=== PATIENT | female | born 1950 | race Caucasian/White ===

== ENCOUNTER 2024-09-20 08:58 | Observation (INO) ==
--- NOTE | 2024-09-17 09:39 | Anesthesiology Consultation ---
Date of Service September 17, 2024 Assessment & Plan (1) Encounter for pre-operative examination: Chart Review Chart Review: Acceptable Risk for Surgery (pending DOS CBC with diff ) and Patient NOT seen in Pre Admission Testing - Check CBC with diff stat DOS (not done within 30 days preoperatively) Left limb restriction - Discussed case with Dr. Escobedo- patient can proceed as scheduled -Infectious Disease screening: Per PAT nursing assessment on 09/10/24. No known infectious disease contacts in past 10 days or current infectious disease symptoms. No recent travel outside the country. Seen by PCP 08/16/24= Presents for SOB, swelling in LEs (L>R). Present x several days. Feeling better than yesterday. VSS. Labs, ECHO, CXR, EKG, UA ordered. Cysto, Retro Pyelo, ureteroscopy, instillation of chemo 07/26/24= Done under [facility] with LMA #4. Igel Last seen by cardio 03/06/24= "...atrial fibrillation...since last clinic visit patient has been diagnosed with renal carcinoma...currently undergoing treatments...no indication for cardiac testing or procedures at this time..." History Surgery Operation Date: 09/20/24 07:30 Proposed Procedures p Cystoscopy, Possible Ureteroscopy, Instillation of Chemotherapy - Right - Sven Chauhan, Height/Weight Height: 5 ft 7 in Weight: 113.852 kg Allergies Allergy/AdvReac Type Severity Reaction Status Date / Time adhesive tape Allergy Intermediate skin Verified 09/10/24 11:44 irritation letrozole Allergy Intermediate listed in Verified 09/10/24 11:44 cardiology records, severe tiredness Iodinated Contrast Media Allergy Unknown listed in Verified 09/10/24 11:44 cardiology records sulfamethoxazole AdvReac Intermediate Gastrointestinal Verified 09/10/24 11:44 [From Bactrim] Upset trimethoprim [From Bactrim] AdvReac Intermediate Gastrointestinal Verified 09/10/24 11:44 Upset cardiolite Allergy Severe severe Uncoded 09/10/24 11:44 facial swelling and redness Medications Home Medications Medication Instructions Recorded Confirmed Last Taken amlodipine 5 mg tablet 5 mg PO QAM 09/08/23 09/10/24 07/26/24 06:30 apixaban 5 mg tablet (Eliquis) 5 mg PO BID 09/08/23 09/10/24 07/23/24 21:00 calcium citrate 400 mg PO QAM 09/08/23 09/10/24 07/25/24 08:00 diltiazem HCl 240 mg capsule,24 240 mg PO QAM 09/08/23 09/10/24 07/26/24 06:30 hr,extended release mupirocin 2 % topical ointment 1 applic topical Q7D 09/08/23 09/10/24 05/21/24 (Centany) pravastatin 40 mg tablet 40 mg PO HS 09/08/23 09/10/24 05/23/24 carbamazepine 100 mg 100 mg PO BID nerves 12/08/23 09/10/24 07/26/24 06:30 capsule,extended release [id number] (Carbatrol) cholecalciferol (vitamin D3) 125 125 mcg PO QAM 04/13/24 09/10/24 07/25/24 08:00 mcg (5,000 unit) tablet (Vitamin D3) furosemide 20 mg tablet (Lasix) 20 mg PO QAM 08/31/24 09/10/24 Unknown magnesium oxide 250 mg PO DAILY 08/31/24 09/10/24 Unknown potassium chloride 8 mEq 8 meq PO DAILY 08/31/24 09/10/24 Unknown tablet,extended release Past Medical History Medical History (Updated 09/17/24 @ 10:42 by Katie Elkins PA-C) Atrial fibrillation Paroxysmal Taking Eliquis Follows with Dr. Hi/Clare Difficulty in walking - Increased LE swelling and difficulty ambulating post op after 07/26/24 surgery; had cardiac testing through PCP to rule out cardiac issues- diagnosed with hip OA and bursitis- still has hip pain ; denies cardiac issues - Patient discussed with surgeon- urology did not feel issues were related to chemo/procedure High cholesterol History of cervical fracture 05/2019, fall down stairs resulting in isolated C1 vertebral body fracture- treated conservatively with collar by neurosurgery, f/u imaging 08/2019 note resolution in fracture History of colon cancer Dx 2021, s/p surgery History of trigeminal neuralgia Hx MRSA infection Dx ~2018 (under armpit/nares) Hx of breast cancer Dx 2019, s/p surgery/xrt Hypertension 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 Ovarian cancer (2003) Dx 2004, s/p surgery/chemo 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, dx 08/2023; s/p laser ablation with biopsies as well as instillation of chemotherapy Past Family History Family History Mother Heart disease Hypertension Other No family history of adverse response to anesthesia Past Surgical History Surgical History History of esophagogastroduodenoscopy (EGD) History of gynecologic surgery 08/2023, lesion removed from vulva (benign) History of lumpectomy of left breast 03/2020 History of postoperative nausea and vomiting one single episode of PONV, no problems after that History of surgery ~2021 (r/t for trigeminal neuraglia) Hx of bilateral cataract extraction Hx of colonoscopy Hx of cystoscopy w/ instillation of chemo, right kidney (multiple)>most recent 07/2024 Hx of lymph node excision pelvic region from ovarian CA Hx of right hemicolectomy Hx of total hysterectomy with removal of both tubes and ovaries S/P cystoscopy (05/03/24) with instillation of chemotherapy -- multiple Social History Smoking Status: Never smoker Do You Dip or Chew Tobacco: No Hx Alcohol Use: Yes alcohol intake frequency: holidays/special occasions only Hx Substance Use: No substance use type: does not use Testing Laboratory Results 08/31/24= URINE CULTURE: Enterococcus faecalis >100,00 CFU/ml 08/29/24= SODIUM: 141 POTASSIUM: 3.4 CHLORIDE: 108 CO2: 26.0 BUN: 13.0 CREATININE: 0.97 GLUCOSE: 116 08/16/24 (>30 days per urology guidelines)= WBC: 3.70 H/H: 10.0/31.4 PLATELETS: 158 Electrocardiogram Date: 08/16/24 SR at 86bpm Poor R wave progression Chest X-Ray Date: 08/16/24 Pneumonitis changes noted in bilateral mid and bilateral lower lung zone with mild linear atelectasis band noted in right mid. As compared to previous x-ray dated 09/24, present x-ray shows pneumonitis lauren ges noted. (Patient with mild cough since end of Jul 2024 (had viral infection)- stable and mild in severity per patient- will leave to anesthesiologist's discretion DOS if repeat CXR needed) Echocardiogram Date: 08/31/24 EF: 55-60% LV Function: normal RWMA: + none Other Findings: no LVH RV normal in size and systolic function Left atrium mildly dilated Aortic valve- not well seen- at most mild , MG- 11, DVI= 0.47. FLORECITA 1.27-1.49 cm2, AV max velocity 2.32m/s Likely normal RVSP and right atrial pressure
--- NOTE | 2024-09-20 09:35 | History & Physical Bridge Note ---
Date of Service September 20, 2024 History & Physical Bridge Note I have examined the patient, reviewed the History & Physical and in the interval since the performance of the History & Physical I have noted the following changes of clinical significance: no changes noted
[2024-09-20] MEDS ORDERED: ONDANSETRON INJ 2 MG/ML 2 ML VIAL IV PRN ×2 (09:36→10:22)
[2024-09-20] MEDS ORDERED: MoRPHine SULFATE 2 MG/ML CARP IV PRN (09:36)
[2024-09-20] MEDS ORDERED: oxyCODONE/ACETAMINOPHEN 5mg/325mg TAB PO PRN (09:36)
[2024-09-20 09:42] LABS: Basophils # (auto) 0.02 K/uL (0.00-0.20); Basophils % (auto) 0.4 %; Eosinophils % (auto) 1.8 %; Hematocrit (blood only) 35.9 % (37.0-47.0); Hemoglobin 11.8 g/dl (12.0-16.0); Immature Granulocytes # (auto) 0.02 K/uL (0.01-0.20); Immature Granulocytes % (auto) 0.4 %; Lymphocytes # (auto) 0.84 K/uL (1.20-3.40); Lymphocytes % (auto) 15.4 %; Mean Corpuscular Hemoglobin 33.2 pg (25.0-34.0); Mean Corpuscular Hgb Conc 32.9 g/dL (32.0-36.0); Mean Corpuscular Volume 101.1 fL (80.0-100.0); Mean Platelet Volume 9.1 fL (9.4-12.4); Monocytes # (auto) 0.78 K/uL (0.11-0.59); Monocytes % (auto) 14.3 %; Neutrophils # (auto) 3.71 K/uL (1.40-6.50); Neutrophils % (auto) 67.7 %; Platelet Count 246 K/uL (130-400); RDW Coefficient of Variation 15.5 % (11.5-14.5); RDW Standard Deviation 58.2 fL (36.4-46.3); Red Blood Count 3.55 M/uL (4.20-5.40); White Blood Count 5.47 K/ul (4.8-10.8)
[2024-09-20] MEDS: LR 15ML/HR IV SCH (09:54)
[2024-09-20] MEDS ORDERED: LIDOCAINE 2% 2 ML VIAL/AMP(20MG/ML) INFIL ONE (10:05)
[2024-09-20] MEDS ORDERED: fentaNYL citrate PF 100 MCG/2 ML VIAL ONE (10:05)
[2024-09-20] MEDS ORDERED: MIDAZOLAM HCL 1 MG/ML 2ML VIAL ONE (10:05)
[2024-09-20] MEDS ORDERED: PROPOFOL IV EMULSION 10 MG/ML 20 ML VIAL IV ONE ×2 (10:05→11:32)
[2024-09-20] MEDS ORDERED: ONDANSETRON INJ 2 MG/ML 2 ML VIAL ONE (10:05)
[2024-09-20] MEDS ORDERED: ATROPINE SULFATE 0.1 MG/ML 10ML SYR IV PRN (10:22)
[2024-09-20] MEDS ORDERED: ePHEDrine sulfate 50 MG/ML AMP IV PRN (10:22)
[2024-09-20] MEDS ORDERED: fentaNYL citrate PF 100 MCG/2 ML VIAL IV PRN (10:22)
[2024-09-20] MEDS ORDERED: PROMETHAZINE HCL 6.25 MG in SODIUM CHLORIDE 0.9% 50 ML IV PRN (10:22)
[2024-09-20] MEDS ORDERED: HYDROmorphone INJ 2 MG/ML SYR/VIAL IV PRN (10:22)
[2024-09-20] MEDS: ceFAZolin 2000MG 2,000 MG/15 ML SYR IV SCH (11:09)
[2024-09-20] MEDS: DIATRIZOATE MEGLUMINE 30% 100ML VIAL INSTIL ONE (11:38)
--- NOTE | 2024-09-20 11:45 | Operative Report ---
PG Post Operative Report Pre & Post Diagnosis Upper Tract UCC Same, Bladder tumors Operation Date: 09/20/24 10:55 <No data on this case meets the specified criteria> I identified the patient and participated in the time-out.: Yes Procedure Cystoscopy with biopsy and fulguration of lesion/tumor Right Retrograde pyelogram. Right Chemotherapy instillation Operation Date: 09/20/24 10:55 <No data on this case meets the specified criteria> Surgeon Sven Chauhan, II, DO [employer] Coordinator None Estimated Blood Loss 1 Findings Consistent with Post-Op Diagnosis Fluoroscopy confirmed position of the ureteral catheter in the right UPJ/ Renal pelvis. Jelmyto chemotherapy was instilled without issue. 10 cc instilled Papillary lesion of the posterior wall approx 1.2 cm in size. Papillary lesion of the left trigone approx 5 mm in size. Approx 1-2 mm lesion of the dome x 3 Specimens None Drains None Anesthesia Type MAC Complications none Disposition Disposition: Recovery Room Indications Patient with Right Low Grade Upper Tract UCC in the Renal pelvis. Risks and benefits discussed at length. Description of Procedure Patient was consented and brought back to the operating room. Patient was placed under anesthesia in the supine position and moved to the dorsal lithotomy position. Patient was prepped and draped in the regular sterile fashion. A time out was completed. A 30degree Cystoscope was placed into the bladder and the entire bladder was examined. The UO's were identified. The right UO was cannulized with a catheter and advanced to the renal pelvis. Fluoroscopy was used to confirm positioning in the right superior position likely within the UPJ. A steady drip of urine was confirmed from the catheter to determine positioning within the renal pelvis. A retrograde pyelogram was completed with 12 cc of contrast confirming position in the renal pelvis. Fluoroscopy was used to confirm location in the vicinity of the Renal Pelvis/UPJ . At this point, the Jelmyto solution/agent was prepared and measured. The injecting device was attached and the syringe was attached to the ureteral catheter. The Jelmyto was then instilled into the renal pelvis. No issues or problems. Fluoroscopy was used to monitor the process. The catheter was held in position for two minutes to allow the solution to set up. The catheter was then removed and disposed of utilizing proper technique and protocol for handling of chemotherapeutic agents. The bladder was fully inspected. There was papillary lesions discovered with a larger papillary lesion on the posterior wall. This was able to be biopsied using a cold cup biopsy forcep. There was an additional small lesion near the trigone/bladder neck on the left. 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 The larger lesion after biopsy was fulgurated with the surrounding tissue ablated. The smaller papillary lesion in the trigone region was ablated. It was found to not be in close proximity of the ureter. The UOs on both sides were able to be identified and no issues. The 3 smaller lesions at the dome were then fulgurated as well. No major areas of bleeding or other issues. The bladder was emptied. The scope was removed. The patient was cleaned, aroused from anesthesia, and transferred to the pacu in stable condition having tolerated the procedure well with no complications. I was present and participated in all aspects of the procedure. The patient will be monitored in the PACU until transferred. Patient will be monitored in PACU and follow the post procedure chemotherapy protocol. Will plan to observe overnight. Followup/set up in approx 3-4 weeks for cystoscopy and next maintenance dose of Jelmyto at that time. I attest to the content of the Intraoperative Record and any orders documented therein. Any exceptions are noted below.
--- NOTE | 2024-09-20 12:18 | Fluoroscopy Report ---
FL retrograde includes kub CLINICAL HISTORY: INSTALLATION OF CHEMO RT COMPARISON STUDY: None FLUOROSCOPY TIME: 11 seconds FLUOROSCOPY IMAGES: 2 EXPOSURE DOSE: 5 mGy FINDINGS: Fluoroscopy was provided for chemotherapy administration. IMPRESSION: Intraoperative fluoroscopy. ACT 112: Negative or not required by law. Electronically signed by: Rohit Pope M.D. 09/20/2024 12:17 PM
[2024-09-20] MEDS: CIPROFLOXACIN / D5W 400 MG/200 ML BAG IV SCH (12:19)
--- NOTE | 2024-09-20 13:30 | Anesthesiology Progress Note ---
Date of Service September 20, 2024 Anesthesia Post Procedure Vital Signs Vital Signs: Temp Pulse Pulse Resp BP Pulse Ox O2 Del Method 09/20/24 13:15 78 17 152/91 H 93 Room Air 09/20/24 13:00 83 20 139/92 94 Room Air 09/20/24 12:45 77 15 142/97 H 90 Room Air 09/20/24 12:30 76 16 114/84 93 Room Air 09/20/24 12:15 36.4 C L 75 15 141/78 H 96 Room Air 09/20/24 12:05 75 17 125/71 93 Room Air 09/20/24 11:55 75 16 124/62 96 Room Air 09/20/24 11:49 36 C L 78 16 123/64 93 Room Air 09/20/24 09:36 36.8 C 88 20 140/76 93 Room Air Transfer of Care Handoff Completed per policy Notes Mental Status: alert / awake / arousable and participated in evaluation Patient Amnestic to Procedure: Yes Nausea / Vomiting: adequately controlled Pain: adequately controlled Airway Patency, RR, SpO2: stable & adequate BP & HR: stable & adequate Hydration State: stable & adequate Anesthetic Complications: no major complications apparent
[2024-09-20] MEDS: CIPROFLOXACIN 400MG / 200ML D5W IV ONE (14:41)
[2024-09-20] MEDS: carBAMazepine XR 100 MG TABCR PO SCH (20:49)
[2024-09-20] MEDS: PRAVASTATIN SOD 40 MG TAB PO SCH (20:50)
[2024-09-21] MEDS: PHENAZOPYRIDINE HCL 200 MG TAB PO PRN (01:08)
[2024-09-21] MEDS: CHOLECALCIFEROL 125 MCG (5,000 UNITS) TAB PO SCH (09:24)
[2024-09-21] MEDS: MAGNESIUM OXIDE 400 MG TAB PO SCH (09:24)
[2024-09-21] MEDS: amLODIPine BESYLATE 5 MG TAB PO SCH (09:24)
[2024-09-21] MEDS: FUROSEMIDE 20 MG TAB PO SCH (09:24)
[2024-09-21] MEDS: dilTIAZem HCL 240 MG CAPCR PO SCH (09:24)
[2024-09-21] MEDS: POTASSIUM CHLORIDE 10 MEQ TABCR PO SCH (09:24)
[2024-09-21] MEDS: CALCIUM CARBONATE 1250MG TAB PO SCH (09:25)
--- NOTE | 2024-09-21 09:59 | Urology Progress Note ---
Date of Service September 21, 2024 Assessment & Plan (1) Urothelial carcinoma of kidney: Plan: - Patient POD #1 s/p Cystoscopy with biopsy and fulguration of lesion/tumor; Right Retrograde pyelogram. Right Chemotherapy instillation - Admitted after procedure for observation - Subjectively feeling well this morning - Afebrile, hemodynamically stable - Voiding spontaneously - Denies pain, tolerating diet - Plan for discharge today - Expected clinical course reviewed, all questions answered - Will arrange outpatient follow-up with our service Admission and Anticipated Discharge Date Admission Date: September 20, 2024 Subjective Patient seen and examined at bedside this morning. She is awake and resting in bed. No acute issues overnight. Subjectively feeling well this morning. Reports dysuria yesterday evening, relieved with Pyridium. No fever or chills. Denies pain at present. Review of Systems Constitutional: as per Subjective / HPI Genitourinary: as per Subjective / HPI Physical Exam Constitutional: well developed and well nourished; no acute distress Respiratory: normal respiratory effort; no respiratory distress and no labored breathing Gastrointestinal (Abdomen): Inspection/Auscultation: abdomen normal to inspection Musculoskeletal: Head/Neck/Chest: normocephalic Neurologic: moves all extremities and awake Psychiatric: Orientation: alert and oriented x 3 Results & Data Vital Signs (Past 12 Hours) Vital Signs Temp Pulse Pulse Resp BP Pulse Ox O2 Del Method 09/21/24 07:17 36.9 C 89 18 130/76 91 Room Air 09/21/24 07:00 92 H 09/21/24 03:50 94 Room Air 09/21/24 03:02 36.7 C 91 H 18 124/74 92 Room Air 09/20/24 23:49 36.8 C 88 18 138/80 93 Room Air 09/20/24 22:02 94 H PG Care Time/CCT Total # of Minutes Spent Total Time Spent with Patient: Total time spent is greater than 50% in coordination of care (as documented) at patient's floor/unit and/or counseling patient: Coding Level of Care Code None Diagnoses 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
--- NOTE | 2024-09-21 12:28 | Discharge Summary ---
Date of Service September 21, 2024 Admission HPI Per Admitting Provider Patient with urothelial carcinoma of kidney here for cystoscopy and Jelmyto instillation. Principal Diagnosis Urothelial carcinoma of kidney Discharge Exam Constitutional well developed and well nourished; no acute distress Respiratory normal respiratory effort; no respiratory distress and no labored breathing Gastrointestinal (Abdomen) Inspection/Auscultation: abdomen normal to inspection Musculoskeletal Head/Neck/Chest: normocephalic Neurologic moves all extremities and awake Psychiatric Orientation: alert and oriented x 3 Discharge Data Allergies Allergy/AdvReac Type Severity Reaction Status Date / Time sestamibi Allergy Severe CARDIOLITE=severe Verified 09/20/24 09:26 facial swelling and redness adhesive tape Allergy Intermediate skin Verified 09/20/24 09:26 irritation letrozole Allergy Intermediate listed in Verified 09/20/24 09:26 cardiology records, severe tiredness Iodinated Contrast Media Allergy Unknown listed in Verified 09/20/24 09:26 cardiology records sulfamethoxazole AdvReac Intermediate Gastrointestinal Verified 09/20/24 09:26 [From Bactrim] Upset trimethoprim [From Bactrim] AdvReac Intermediate Gastrointestinal Verified 09/20/24 09:26 Upset Procedures Performed Operation Date: 09/20/24 10:55 Actual Procedures p Cystoscopy, Instillation of mitomycin, Right retrograde pyelogram, Right biopsy fulguration(Right) - Sven Chauhan, DO Ordered Studies 09/20/24 10:55 FL retrograde includes kub Routine Hospital Course (1) Urothelial carcinoma of kidney: - Patient POD #1 s/p Cystoscopy with biopsy and fulguration of lesion/tumor; Right Retrograde pyelogram. Right Chemotherapy instillation - Admitted after procedure for observation - Subjectively feeling well this morning - Afebrile, hemodynamically stable - Voiding spontaneously - Denies pain, tolerating diet - Plan for discharge today - Expected clinical course reviewed, all questions answered - Will arrange outpatient follow-up with our service Total Time Total Time Spent Total Time Spent (In Minutes): 15 Discharge Plan Discharge Items Patient Disposition: Home - Self-Care Reason For Visit: Malignant Neoplasm of Right Kidney, Except Renal P Discharge Diagnosis: Malignant neoplasm of right kidney Activity: Per Instructions section Lifting: No more than 25 pounds Bathing Comment: Okay to shower to discharge Sexual Activity: When tolerated Exercise/Sports: As tolerated Non-emergency contact: Surgeon and Urologist Call non-emergency contact if: your pain is not controlled and your temperature is above 101 Follow-up/Referrals: Sven Chauhan DO [Physician] - 10/03/24 1:00 pm Becky Zhang CRNP [Primary Care Provider] - Diet: Regular Addtl Attending Provider Instructions: Please take all medications as prescribed and keep all follow-ups as scheduled. Please call our office at [phone] with any questions, concerns or need to reschedule appointments for any reason. We are happy to assist you. You can resume Eliquis tonight. Take antibiotic as directed. You can take Tamsulosin once daily at bedtime. You can take Pyridium 1 tablet every 8 hours up to 3 times per day for 2-3 days as needed for urinary discomfort. After procedure: Some discomfort is normal. Medication to help minimize discomfort or bladder spasms, or to prevent infection may be prescribed. Take this as directed. Drink plenty of fluids to help flush out your urinary tract. If you go home with a catheter, wash with soapy water and a fresh washcloth twice daily. We recommend mild bar soap such as Dial or Dove. When to call [facility] at [phone]: Your urine contains heavy blood clots You are constantly leaking urine Fever of 101F or higher, chills, nausea, or vomiting Your pain is not relieved with medication Pending Studies at Discharge: Yes Studies:: pathology Stand-Alone Forms: My [facility] [employer], Smoking Cessation Medications and DC Order Prescriptions: New tamsulosin [Flomax] 0.4 mg capsule 0.4 mg PO HS Qty: 30 0RF cephalexin 500 mg capsule 500 mg PO BID 3 Days Qty: 6 0RF Continued magnesium oxide 250 mg magnesium tablet 250 mg PO DAILY furosemide [Lasix] 20 mg tablet 20 mg PO QAM Patient Comments: will finish course of tx prior to sx on 09/20/24 potassium chloride 8 mEq tablet extended release 8 meq PO DAILY pravastatin 40 mg Tablet 40 mg PO HS diltiazem HCl 240 mg Capsule,Extended Release 24 Hr 240 mg PO QAM amlodipine 5 mg Tablet 5 mg PO QAM mupirocin [Centany] 2 % Ointment 1 applic TOPICAL Q7D Rx Instructions: put in nares Q7D calcium citrate 200 mg (950 mg) Tablet 400 mg PO QAM Eliquis 5 mg Tablet 5 mg PO BID cholecalciferol (vitamin D3) [Vitamin D3] 125 mcg (5,000 unit) Tablet 125 mcg PO QAM carbamazepine [Carbatrol] 100 mg capsule, ER multiphase 12 hr 100 mg PO BID Discharge Orders: Discharge Order (Routine); Ordered 09/21/24 Ordered By: Raegan Villanueva Admission Data Admit Date/Time: 09/20/24 09:36 Attending Provider: Sven Chauhan Admit Provider: Sven Chauhan Primary Care Provider: Becky Zhang Other Interventions: Discharge Summary Assessment (RN) Last Done: 09/21/24 11:27 Coding Level of Care Code 56112 IN/OBS DISCH 30 MIN/LESS Diagnoses 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
[2024-09-25] MEDS ORDERED: MUPIROCIN 2% OINT 22 GM TUBE TOP SCH (09:00)
== END 2024-09-21 11:40 | disposition home or self-care (01) ==
LOC: PACUINP 08:58 → ASU 08:58 → 2W 14:28